=== PATIENT | male | born 1995 | race African-American/Black ===

== ENCOUNTER 2018-08-19 14:02 | Emergency (ER) | payer SELFPAY ==
[~2018-08-19] VITALS: Ht 182.9 cm; Wt 60.0 kg
[2018-08-19 14:16] VITALS: BP 161/74
== END 2018-08-19 18:15 | disposition left against medical advice (07) ==
LOC: ER 15:51
DX: Z53.21 Procedure and treatment not carried out due to patient leaving prior to being seen by health care provider (principal)